=== PATIENT | female | born 1960 | race Two or more races ===

== ENCOUNTER 2022-08-28 08:45 | Emergency (ER) | payer OTHER ==
[~2022-08-28] VITALS: Ht 172.7 cm; Wt 79.5 kg
[2022-08-28 09:03] VITALS: BP 134/93
--- NOTE | 2022-08-28 09:09 | NUR ---
Jessica perry in [facility] - 08/28/22 at 0911 by [email or web address] PT AMB TO BED 12
--- NOTE | 2022-08-28 09:11 | NUR ---
PT AMB TO BED9
[2022-08-28 11:08] LABS: BASOPHILS % (AUTO) 0.2 % (0.0-2.0); EOSINOPHILS # (AUTO) 0.1 K/uL (0-0.4); EOSINOPHILS % (AUTO) 1.1 % (0.0-4.0); HEMATOCRIT 42.8 % (36-48); HEMOGLOBIN 14.7 g/dL (12.0-16.0); LYMPHOCYTES # (AUTO) 2.3 K/uL (2.5-16.5); MEAN CORPUSCULAR HEMOGLOBIN 31 pg (27-31); MEAN CORPUSCULAR HGB CONC 34 g/dL (33-37); MEAN CORPUSCULAR VOLUME 90.2 fL (80-94); MONOCYTES # (AUTO) 0.8 K/uL (0.8-1.0); MONOCYTES % (AUTO) 8.2 % (1.7-9.3); NEUTROPHILS # (AUTO) 6.4 K/uL (1.8-7.7); NEUTROPHILS % (AUTO) 66.5 % (42.2-75.2); PLATELET COUNT (AUTO) 261 K/uL (140-450); RED BLOOD CELL COUNT(AUTO) 4.75 MIL/uL (4.20-5.40); RED CELL DISTRIBUTION WIDTH 13.3 % (11.6-13.7); WHITE BLOOD COUNT (AUTO) 9.6 K/uL (4.8-10.8)
[2022-08-28 11:13] LABS: ALBUMIN 3.7 g/dL (3.4-5.0); ANION GAP 11.4 (8-16); CARBON DIOXIDE 29.6 mmol/L (21-32); CREATININE 0.8 mg/dL (0.6-1.3); TOTAL BILIRUBIN 0.6 mg/dL (0.0-1.0)
[2022-08-28 12:07] LABS: APPEARANCE,URINE CLEAR (CLEAR); BILIRUBIN,URINE 1+ (NEGATIVE); BLOOD, URINE TRACE-I (NEGATIVE); COLOR,URINE YELLOW (YELLOW); LEUKOCYTE ESTERASE ,URINE TRACE (NEGATIVE); NITRITE, URINE NEGATIVE (NEGATIVE); PH,URINE 6.5 (5.0-9.0); UGLUCOSE NEGATIVE (NEGATIVE)
[2022-08-28] MEDS ORDERED: BEN10 PO (12:32)
[2022-08-28 12:42] VITALS: BP 136/83
--- NOTE | 2022-08-28 12:42 | NUR ---
Patient discharged with v/s stable. Written and verbal after care instructions given. Patient alert, oriented and verbalized understanding of instructions. Ambulatory with steady gait. All questions addressed prior to discharge. ID band removed. Patient advised to follow up with PMD. Rx of BENTYL given. Opportunity to ask questions provided and answered.
--- NOTE | 2022-08-28 12:45 | NUR ---
Chart checked and completed. The patient's care was reviewed and supervised by Deysi Beck RN.
== END 2022-08-28 12:42 | disposition home or self-care (01) ==
LOC: MED 08:45
DX: R10.9 Unspecified abdominal pain (principal); R11.2 Nausea with vomiting, unspecified; R19.7 Diarrhea, unspecified; E03.9 Hypothyroidism, unspecified; Z79.899 Other long term (current) drug therapy; Z98.890 Other specified postprocedural states
CPT/HCPCS: 36415; 80053; 81001; 83690; 85025; 87086; 99284

== ENCOUNTER 2022-09-22 10:32 | Emergency (ER) | payer OTHER ==
[~2022-09-22] VITALS: Ht 167.6 cm; Wt 77.1 kg
[~2022-09-22 10:32] MED LIST: BEN10 PO
[2022-09-22 10:53] VITALS: BP 154/70
--- NOTE | 2022-09-22 10:55 | NUR ---
PT AMBULATED TO ER BED 4
--- NOTE | 2022-09-22 11:10 | NUR ---
here for diffuse abd pain 05/01, + N/V, o2 sat 99% ra, nsr on cm, sr up times 2, awaits md banks
[2022-09-22] MEDS ORDERED: NACL 0.9% 1,000 ML IV ONE (11:30)
[2022-09-22] MEDS ORDERED: KETOROLAC 30 MG/ML VIAL IVP ONE (11:30)
--- NOTE | 2022-09-22 12:00 | NUR ---
medicated for abd pain per dr tsai
[2022-09-22 12:06] LABS: BASOPHILS % (AUTO) 0.4 % (0.0-2.0); EOSINOPHILS # (AUTO) 0.3 K/uL (0-0.4); EOSINOPHILS % (AUTO) 2.8 % (0.0-4.0); HEMATOCRIT 42.5 % (36-48); HEMOGLOBIN 14.4 g/dL (12.0-16.0); LYMPHOCYTES # (AUTO) 1.1 K/uL (2.5-16.5); LYMPHOCYTES % (AUTO) 11.9 % (20.5-51.1); MEAN CORPUSCULAR HEMOGLOBIN 31 pg (27-31); MEAN CORPUSCULAR HGB CONC 34 g/dL (33-37); MEAN CORPUSCULAR VOLUME 90.3 fL (80-94); MONOCYTES # (AUTO) 0.6 K/uL (0.8-1.0); MONOCYTES % (AUTO) 6.4 % (1.7-9.3); NEUTROPHILS # (AUTO) 7.2 K/uL (1.8-7.7); NEUTROPHILS % (AUTO) 78.5 % (42.2-75.2); PLATELET COUNT (AUTO) 296 K/uL (140-450); RED BLOOD CELL COUNT(AUTO) 4.71 MIL/uL (4.20-5.40); WHITE BLOOD COUNT (AUTO) 9.2 K/uL (4.8-10.8)
[2022-09-22 12:23] LABS: ALBUMIN 3.5 g/dL (3.4-5.0); ANION GAP 11.4 (8-16); CARBON DIOXIDE 29.4 mmol/L (21-32); CREATININE 0.8 mg/dL (0.6-1.3); POTASSIUM 4.8 mmol/L (3.5-5.1); TOTAL BILIRUBIN 0.4 mg/dL (0.0-1.0)
[2022-09-22 15:07] LABS: BILIRUBIN,URINE NEGATIVE (NEGATIVE); BLOOD, URINE 3+ (NEGATIVE); COLOR,URINE YELLOW (YELLOW); LEUKOCYTE ESTERASE ,URINE 1+ (NEGATIVE); NITRITE, URINE NEGATIVE (NEGATIVE); UGLUCOSE NEGATIVE (NEGATIVE)
--- NOTE | 2022-09-22 15:10 | NUR ---
getting u/s, feels better about abd pain, no n/v, sr on cm, o2 sat 98%ra, getting abd u/s at this time
[2022-09-22 15:11] LABS: APPEARANCE,URINE CLOUDY (CLEAR)
[2022-09-22 15:16] LABS: CALCIUM OXALATE CRYSTALS,UR 0-10 /HPF (None Seen); RBC,URINE 11-20 (MOD) /HPF (0-5); URINE AMORPHOUS URATE 3+ /HPF (None Seen)
[2022-09-22] MEDS ORDERED: CEPH-588 PO (16:19)
[2022-09-22] MEDS ORDERED: ONDA-188 PO (16:19)
--- NOTE | 2022-09-22 17:15 | NUR ---
Patient discharged with v/s stable. Written and verbal after care instructions UTI AND ABD PAIN given and explained. Patient alert, oriented and verbalized understanding of instructions. Ambulatory with steady gait. All questions addressed prior to discharge. ID band removed. Patient advised to follow up with PMD. Rx of KELFEX AND ZOFRAN ODT given. Patient educated on indication of medication including possible reaction and side effects. Opportunity to ask questions provided and answered.
== END 2022-09-22 17:15 | disposition home or self-care (01) ==
LOC: MED 10:32
DX: N39.0 Urinary tract infection, site not specified (principal); E03.9 Hypothyroidism, unspecified
CPT/HCPCS: 36415; 74178; 76705; 80053; 81001; 85025; 87086; 96361; 96374; 99285; J1885; Q0092; Q9967

== ENCOUNTER 2024-06-01 08:16 | Emergency (ER) | payer OTHER ==
[~2024-06-01] VITALS: Ht 170.2 cm; Wt 74.4 kg
[~2024-06-01 08:16] MED LIST changes: +CEPH-588 PO; +ONDA-188 PO
[2024-06-01 08:28] VITALS: BP 158/91; PULSE 52; RESP 16; TEMP 97.7; O2SAT 98
[2024-06-01 09:05] LABS: BASOPHILS # (AUTO) 0.1 K/uL (0.00-0.22); BASOPHILS % (AUTO) 1.6 % (0.0-2.0); EOSINOPHILS # (AUTO) 0.4 K/uL (0-0.4); EOSINOPHILS % (AUTO) 5.4 % (0.0-4.0); HEMATOCRIT 40.6 % (36-48); LYMPHOCYTES % (AUTO) 26.5 % (20.5-51.1); MEAN CORPUSCULAR HEMOGLOBIN 32 pg (27-31); MEAN CORPUSCULAR HGB CONC 35 g/dL (33-37); MEAN CORPUSCULAR VOLUME 93.1 fL (80-94); MONOCYTES # (AUTO) 0.6 K/uL (0.8-1.0); MONOCYTES % (AUTO) 7.8 % (1.7-9.3); NEUTROPHILS # (AUTO) 4.4 K/uL (1.8-7.7); NEUTROPHILS % (AUTO) 58.7 % (42.2-75.2); PLATELET COUNT (AUTO) 268 K/uL (140-450); RED BLOOD CELL COUNT(AUTO) 4.36 MIL/uL (4.20-5.40); RED CELL DISTRIBUTION WIDTH 13.2 % (11.6-13.7); WHITE BLOOD COUNT (AUTO) 7.5 K/uL (4.8-10.8)
[2024-06-01 09:25] LABS: ALBUMIN 3.6 g/dL (3.4-5.0); ANION GAP 13.3 (8-16); CALCIUM 8.3 mg/dL (8.5-10.1); CARBON DIOXIDE 25.6 mmol/L (21-32); POTASSIUM 3.9 mmol/L (3.5-5.1); TOTAL BILIRUBIN 0.5 mg/dL (0.0-1.0)
[2024-06-01 09:31] LABS: APPEARANCE,URINE CLEAR (CLEAR); BILIRUBIN,URINE NEGATIVE (NEGATIVE); BLOOD, URINE 1+ (NEGATIVE); COLOR,URINE YELLOW (YELLOW); LEUKOCYTE ESTERASE ,URINE NEGATIVE (NEGATIVE); NITRITE, URINE NEGATIVE (NEGATIVE); PH,URINE 7.5 (5.0-9.0); PROTEIN,URINE NEGATIVE (NEGATIVE); UGLUCOSE NEGATIVE (NEGATIVE); UROBILINOGEN,URINE 0.2 EU/dL (0.2 - 1)
[2024-06-01 09:40] LABS: BACTERIA,URINE OCCASSIONAL /HPF (None Seen); RBC,URINE 20-50 /HPF (0-5); SQUAMOUS EPITHELIAL CELL,UR 0-3 (FEW) /LPF (0-3 (FEW)); WBC,URINE 0-5 /HPF (0-5)
[2024-06-01] MEDS ORDERED: FAMO-90 PO (10:56)
[2024-06-01] MEDS ORDERED: ACET500T99 PO (10:56)
[2024-06-01 12:04] VITALS: BP 153/89; PULSE 56; RESP 16; TEMP 97.7; O2SAT 98
== END 2024-06-01 12:04 | disposition home or self-care (01) ==
LOC: MED 08:16
DX: K29.70 Gastritis, unspecified, without bleeding (principal); K82.4 Cholesterolosis of gallbladder; Z79.899 Other long term (current) drug therapy
CPT/HCPCS: 36415; 76705; 80053; 81001; 81025; 83690; 84484; 85025; 93005; 99284; Q0092